=== PATIENT | female | born 1935 | race Caucasian/White ===

== ENCOUNTER 2016-09-11 09:44 | Emergency (ER) | payer OTHER ==
[~2016-09-11] VITALS: Ht 160 cm; Wt 76.9 kg
[~2016-09-11 09:44] MED LIST: CENTRUM SILVER1 EAC3 PO; CIPRO500 MG PO; ENALAPRIL MALEA10 MG PO; FLAGYL500 MG PO; HEALTHY HEART1 EAC1 PO; PROTONIX40 MG PO; VASOTEC10 MG PO
[2016-09-11] MEDS ORDERED: TYLENOL WITH C1 EACH PO (12:26)
[2016-09-11 12:35] VITALS: BP 137/78
== END 2016-09-11 12:36 | disposition home or self-care (01) ==
LOC: EME 09:44
DX: R07.89 Other chest pain (principal); M25.511 Pain in right shoulder; W01.0XXA Fall on same level from slipping, tripping and stumbling without subsequent striking against object, initial encounter; Z87.891 Personal history of nicotine dependence; Z96.651 Presence of right artificial knee joint
CPT/HCPCS: 71020; 71100; 73030; 99281; 99284

== ENCOUNTER 2016-11-10 17:03 | Emergency (ER) | payer OTHER ==
[~2016-11-10] VITALS: Ht 160 cm; Wt 78.1 kg
[~2016-11-10 17:03] MED LIST changes: +TYLENOL WITH C1 EACH PO
[2016-11-10 18:59] LABS: HEMATOCRIT 39.5 % (36.0-46.0); MCH 30.8 PG (29.0-34.0); MCHC 33.4 G/DL (30.0-36.0); MCV 92.1 FL (83-99); MEAN PLAT.VOLUME 9.4 uM^3 (9.5-12.4); PLATELET COUNT 337 K/uL (156-360); RBC DIS.WIDTH-CV 13.5 % (11.8-14.6); RBC DIS.WIDTH-SD 45.6 % (39-53); RED BLOOD COUNT 4.29 M/uL (3.80-5.20); WHITE BLOOD COUNT 7.2 K/uL (4.1-10.2)
[2016-11-10 19:04] LABS: CHLORIDE 106 mEq/L (99-109); POTASSIUM 4.1 mEq/L (3.7-5.4); SODIUM 141 mEq/L (136-147)
[2016-11-10 19:06] LABS: GLUCOSE 103 mg/dL (70-99)
[2016-11-10 19:07] LABS: ANION GAP 9 MEQ/L (2-14)
[2016-11-10 19:09] LABS: GFR ESTIMATE (CALCULATED) > 59 mL/min/
[2016-11-10 19:10] LABS: UREA NITROGEN (BUN) 12 mg/dL (9-23)
[2016-11-10 19:17] LABS: TROP-I INTERPRETATION NEGATIVE; TROPONIN-I < 0.01 ng/mL (0.0-0.30)
[2016-11-10 21:13] LABS: ADD MIUA? YES; BILIRUBIN NEGATIVE; BLOOD NEGATIVE; COLOR YELLOW ((YELLOW)); GLUCOSE (STRIP) NEGATIVE; KETONES NEGATIVE; LEUKOCYTES LARGE; NITRITE NEGATIVE; PROTEIN (STRIP) NEGATIVE; SPECIFIC GRAVITY 1.012 (1.000-1.030); UROBILINOGEN 0.2 MG/DL (0.2-1.0)
[2016-11-10 21:28] LABS: BACTERIA RARE /HPF; EPITHELIAL CELLS 2+ /HPF; HYALINE CASTS 0-5 /LPF; MUCUS TRACE /LPF; RED BLOOD CELLS 0-5 /HPF (0-5); UCUL ADDED? NO; UNCLASSIFIED CASTS 0-5 /LPF; WHITE BLOOD CELLS 0-5 /HPF (0-5)
[2016-11-10 22:03] VITALS: BP 145/76
== END 2016-11-10 22:05 | disposition home or self-care (01) ==
LOC: EME 17:03
PROVIDERS: Emergency Medicine; Nurse Practitioner Family
DX: R42 Dizziness and giddiness (principal); I10 Essential (primary) hypertension; Z79.82 Long term (current) use of aspirin; Z87.891 Personal history of nicotine dependence; Z96.651 Presence of right artificial knee joint
CPT/HCPCS: 70450; 71020; 80048; 81003; 84484; 85027; 93005; 99281; 99284